=== PATIENT | male | born 2000 | race Caucasian/White ===

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

== ENCOUNTER 2022-12-18 15:38 | Emergency (ER) | payer SELFPAY ==
[~2022-12-18] VITALS: Ht 177 cm; Wt 98.0 kg
[2022-12-18 16:25] LABS: BASOPHILS % (AUTO) 1 % (0-10); EOSINOPHILS # (AUTO) 0.1 10^3/uL (0.0-0.3); EOSINOPHILS % (AUTO) 1 % (0-10); HEMATOCRIT 47 % (40-54); HEMOGLOBIN 16.7 g/dL (13.3-17.7); LYMPHOCYTES # (AUTO) 1.6 10^3/uL (1.0-4.0); LYMPHOCYTES % (AUTO) 29 % (12-44); MEAN CORPUSCULAR HEMOGLOBIN 31 pg (25-34); MEAN CORPUSCULAR HGB CONC 35 g/dL (32-36); MEAN CORPUSCULAR VOLUME 88 fL (80-99); MEAN PLATELET VOLUME 9.3 fL (9.0-12.2); MONOCYTES # (AUTO) 0.4 10^3/uL (0.0-1.0); MONOCYTES % (AUTO) 8 % (0-12); NEUTROPHILS # (AUTO) 3.3 10^3/uL (1.8-7.8); NEUTROPHILS % (AUTO) 60 % (42-75); PLATELET COUNT 278 10^3/uL (130-400); WHITE BLOOD COUNT 5.5 10^3/uL (4.3-11.0)
--- NOTE | 2022-12-18 16:26 | ED Abdominal Pain ---
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 PT STATES HAS ABD PAIN, OCC NAUSEA AND DIARRHEA FOR ALMOST A YEAR. PT RATES PAIN 02/14 Source of Information: Patient Exam Limitations: Language Barrier History of Present Illness Date Seen by Provider: Dec 18, 2022 Time Seen by Provider: 16:06 Initial Comments 22-year-old male presents to the ER with complaints of abdominal pain for approximately 1 year. States the pain occurs after eating. The reason he came in today is because he is concerned that he has stomach cancer. He reports occasional nausea, no vomiting. Reports he had diarrhea couple days ago, none today. Complains of bilateral mid to lower abdominal pain every time he eats. He states that he also gets heartburn and gastritis due to eating a lot of chili. He states that 4 weeks ago he cut down on the amount of chili he eats and started taking Pepto-Bismol. States this did help his pain some. Last bowel movement was approximately an hour prior to arrival. Denies fevers. Allergies and Home Medications Allergies Coded Allergies: No Known Drug Allergies (Unverified , 09/02/20) Patient Home Medication List Home Medication List Reviewed: Yes Omeprazole (Omeprazole) 20 Mg Capsule., 20 MG PO DAILY Prescribed by: Kavita Talbot on 12/18/221851 Review of Systems Review of Systems Constitutional: see HPI Gastrointestinal: See HPI Past Elomlca-Svfvsm-Xnfqdq Hx Patient Social History Tobacco Use?: Yes Tobacco type used: Cigarettes Smoking Status: Current Everyday Smoker Substance use?: No Alcohol Use?: No Pt feels they are or have been: No Immunizations Up To Date Tetanus Booster (TDap): Unknown Seasonal Allergies Seasonal Allergies: No Past Medical History Surgeries: No Respiratory: No Cardiac: No Neurological: No Genitourinary: No Gastrointestinal: No Musculoskeletal: No Endocrine: No HEENT: No Cancer: No Psychosocial: No Integumentary: No Blood Disorders: No Physical Exam Vital Signs Vital Signs - First Documented 12/18/22 12/18/22 15:50 19:17 Temp 36.4 Pulse 83 Resp 18 B/P (MAP) 124/71 (88) Pulse Ox 98 O2 Delivery Room Air Capillary Refill : Less Than 3 Seconds Height/Weight/BMI Height: '" Weight: lbs. oz. kg; 31.00 BMI Method: General Appearance: WD/WN, no apparent distress Neck: supple, normal inspection Respiratory: lungs clear, normal breath sounds, no respiratory distress, no accessory muscle use Cardiovascular: regular rate, rhythm Gastrointestinal: normal bowel sounds, soft, tenderness (Mild tenderness bilate ral lower to mid abdomen) Extremities: normal range of motion, normal inspection Neurologic/Psychiatric: alert, normal mood/affect Skin: normal color, warm/dry Progress/Results/Core Measures Results/Orders Lab Results Laboratory Tests Test 12/18/22 16:15 12/18/22 16:21 Range/Units White Blood Count 5.5 4.3-11.0 10^3/uL Red Blood Count 5.37 4.30-5.52 10^6/uL Hemoglobin 16.7 13.3-17.7 g/dL Hematocrit 47 40-54 % Mean Corpuscular Volume 88 80-99 fL Mean Corpuscular Hemoglobin 31 25-34 pg Mean Corpuscular Hemoglobin Concent 35 32-36 g/dL Red Cell Distribution Width 12.0 10.0-14.5 % Platelet Count 278 130-400 10^3/uL Mean Platelet Volume 9.3 9.0-12.2 fL Immature Granulocyte % (Auto) 1 % Neutrophils (%) (Auto) 60 42-75 % Lymphocytes (%) (Auto) 29 12-44 % Monocytes (%) (Auto) 8 0-12 % Eosinophils (%) (Auto) 1 0-10 % Basophils (%) (Auto) 1 0-10 % Neutrophils # (Auto) 3.3 1.8-7.8 10^3/uL Lymphocytes # (Auto) 1.6 1.0-4.0 10^3/uL Monocytes # (Auto) 0.4 0.0-1.0 10^3/uL Eosinophils # (Auto) 0.1 0.0-0.3 10^3/uL Basophils # (Auto) 0.0 0.0-0.1 10^3/uL Immature Granulocyte # (Auto) 0.0 0.0-0.1 10^3/uL Sodium Level 141 135-145 MMOL/L Potassium Level 3.6 3.6-5.0 MMOL/L Chloride Level 107 98-107 MMOL/L Carbon Dioxide Level 23 21-32 MMOL/L Anion Gap 11 5-14 MMOL/L Blood Urea Nitrogen 11 7-18 MG/DL Creatinine 0.86 0.60-1.30 MG/DL Estimat Glomerular Filtration Rate 127 BUN/Creatinine Ratio 13 Glucose Level 97 70-105 MG/DL Calcium Level 9.6 8.5-10.1 MG/DL Corrected Calcium 8.5-10.1 MG/DL Total Bilirubin 0.6 0.1-1.0 MG/DL Aspartate Amino Transf (AST/SGOT) 51 H 5-34 U/L Alanine Aminotransferase (ALT/SGPT) 81 H 0-55 U/L Alkaline Phosphatase 157 H 40-136 U/L Total Protein 7.7 6.4-8.2 GM/DL Albumin 4.7 H 3.2-4.5 GM/DL Amylase Level 51 25-125 U/L Lipase 22 8-78 U/L Urine Color YELLOW Urine Clarity CLEAR Urine pH 6.0 5-9 Urine Specific [place] >=1.030 1.016-1.022 Urine Protein NEGATIVE NEGATIVE Urine Glucose (UA) NEGATIVE NEGATIVE Urine Ketones NEGATIVE NEGATIVE Urine Nitrite NEGATIVE NEGATIVE Urine Bilirubin NEGATIVE NEGATIVE Urine Urobilinogen 0.2 < = 1.0 MG/DL Urine Leukocyte Esterase NEGATIVE NEGATIVE Urine RBC (Auto) TRACE-I H NEGATIVE Urine RBC NONE /HPF Urine WBC NONE /HPF Urine Squamous Epithelial Cells NONE /HPF Urine Crystals NONE /LPF Urine Bacteria NEGATIVE /HPF Urine Casts NONE /LPF Urine Mucus NEGATIVE /LPF Urine Culture Indicated NO My Orders Orders - KAVITA TALBOT APRN Ua Culture If Indicated (12/18/22 16:06) Comprehensive Metabolic Panel (12/18/22 16:20) Lipase (12/18/22 16:20) Amylase (12/18/22 16:20) Cbc With Automated Diff (12/18/22 16:20) Ct Abdomen/Pelvis W (12/18/22 16:20) Pantoprazole Injection (Protonix Injecti (12/18/22 16:30) Iohexol Injection (Omnipaque 350 Mg/Ml 1 (12/18/22 17:00) Ns (Ivpb) (Sodium Chloride 0.9% Ivpb Bag (12/18/22 17:00) Ed Iv/Invasive Line Start (12/18/22 17:07) Ns Iv 1000 Ml (Sodium Chloride 0.9%) (12/18/22 17:15) Medications Given in ED Current Medications Medications Dose Ordered Sig/Bruce Route Start Time Stop Time Status Last Admin Dose Admin Iohexol 100 ml ONCE ONCE IV 12/18/22 17:00 12/18/22 17:01 DC 12/18/22 17:24 80 ML Pantoprazole 40 mg ONCE ONCE IV 12/18/22 16:30 12/18/22 16:31 DC 12/18/22 17:00 40 MG Sodium Chloride 100 ml ONCE ONCE IV 12/18/22 17:00 12/18/22 17:01 DC 12/18/22 17:24 80 ML Vital Signs/I&O 12/18/22 12/18/22 12/18/22 15:50 16:05 19:17 Temp 36.4 36.4 36.4 Pulse 83 83 71 Resp 18 18 16 B/P (MAP) 124/71 (88) 124/71 (88) 121/73 Pulse Ox 98 98 97 O2 Delivery Room Air Blood Pressure Mean: 88 Progress Progress Note : Progress Note Patient seen evaluated, resting comfortably in bed, no acute distress. Based on exam and symptoms, work-up initiated including CBC, CMP, amylase, lipase, CT abdomen pelvis. Protonix IV ordered. [address] reviewed. CBC grossly normal. CMP shows slightly elevated AST 51, slightly elevated ALT 81, slightly elevated alkaline phosphatase at 157, slightly elevated albumin 4.7. Amylase and lipase normal. UA shows trace RBCs, negative for infection. Abdominal CT shows no acute abnormality. Results discussed with patient. Patient instructed to follow-up with primary care provider regarding elevated liver enzymes. I instructed him to follow-up with surgery for possible endoscopy for evaluation of abdominal pain. Patient agreeable to discharge plan. Discharge instructions and return precautions provided. Diagnostic Imaging Diagonstic Imaging: CT Plain Films/CT/US/NM/MRI: abdomen, pelvis Comments [facility] [place], [place] NAME: [facility] REC#: [id number] PT STATUS: REG ER : 2000 PHYSICIAN: KAVITA TALBOT APRN ADMIT DATE: 12/18/22/ER Signed Date of Exam:12/18/22 CT ABDOMEN/PELVIS W EXAMINATION: CT abdomen and pelvis with intravenous contrast. TECHNIQUE: Multiple contiguous axial images were obtained through the abdomen and pelvis after the uneventful administration of intravenous contrast. All CT scans use one or more of the following dose optimizing techniques: Automated exposure control, MA and/or KvP adjustment based on patient size and exam type or iterative reconstruction. HISTORY: Abdominal pain. COMPARISON: None available. FINDINGS: Limited views of the lower thorax are unremarkable. The liver is normal without focal lesion. There is no biliary ductal dilation. Gallbladder is normal. Pancreas is normal. Spleen is normal. Adrenal glands are normal. The kidneys are normal. There is no hydronephrosis. Urinary bladder is normal. Bowel is normal in caliber without obstruction or inflammation. The appendix is normal. No free fluid or air. No abdominal or pelvic lymphadenopathy. Aorta is normal in caliber without aneurysm. There are no suspicious osseous lesions. IMPRESSION: 1. No acute abnormality in the abdomen or pelvis. Dictated by: Dictated on workstation # [id number] Dict: 12/18/221728 Trans: 12/18/22 [id number] Interpreted by: JUAN VIRK MD Electronically signed by: JUAN VIRK MD 12/18/22 174 Departure Impression Primary Impression: Abdominal pain Qualified Codes: R10.9 - Unspecified abdominal pain Disposition: 01 HOME, SELF-CARE Condition: Stable Departure-Patient Inst. Decision time for Depature: 18:49 Referrals: [facility] (PCP/Family) Primary Care Physician TRIHS BRANTLEY DO Patient Instructions: Gastritis, Severe Abdominal Pain, Adult (DC) Add. Discharge Instructions: Take omeprazole once daily as prescribed. You may also take Tums or Pepto- Bismol. Call surgery to schedule a follow up for an endoscopy. Follow up with primary care provider for your elevated liver function tests. Return for severe pain, or any other new, concerning, or worsening symptoms. All discharge instructions reviewed with patient and/or family. Voiced underst anding. Scripts Omeprazole (Omeprazole) 20 Mg Capsule. 20 MG PO DAILY for 42 Days, #42 CAP 0 Refills Prov: KAVITA TALBOT APRN 12/18/22 KAVITA TALBOT APRN Dec 18, 2022 16:25
[2022-12-18 16:27] LABS: BILIRUBIN,URINE NEGATIVE (NEGATIVE); CLARITY,URINE CLEAR; COLOR,URINE YELLOW; GLUCOSE, URINE (UA) NEGATIVE (NEGATIVE); KETONES,URINE NEGATIVE (NEGATIVE); LEUKOCYTE ESTERASE ,URINE NEGATIVE (NEGATIVE); NITRITE,URINE NEGATIVE (NEGATIVE); PROTEIN,URINE NEGATIVE (NEGATIVE)
[2022-12-18] MEDS ORDERED: PANTOPRAZOLE 40 MG (PROTONIX) VIAL IV ONE (16:30)
[2022-12-18 16:33] LABS: BACTERIA,URINE NEGATIVE /HPF
[2022-12-18 16:38] LABS: ALBUMIN 4.7 GM/DL (3.2-4.5); CHLORIDE 107 MMOL/L (98-107); POTASSIUM 3.6 MMOL/L (3.6-5.0); SODIUM 141 MMOL/L (135-145)
[2022-12-18 16:39] LABS: AMYLASE 51 U/L (25-125); CALCIUM 9.6 MG/DL (8.5-10.1)
[2022-12-18 16:41] LABS: GLUCOSE 97 MG/DL (70-105); TOTAL PROTEIN 7.7 GM/DL (6.4-8.2)
[2022-12-18 16:42] LABS: BILIRUBIN,TOTAL 0.6 MG/DL (0.1-1.0); CARBON DIOXIDE 23 MMOL/L (21-32)
[2022-12-18 16:44] LABS: ALKALINE PHOSPHATASE 157 U/L (40-136); CREATININE SERUM 0.86 MG/DL (0.60-1.30); GFR ESTIMATED 127
[2022-12-18 16:45] LABS: BUN/CREATININE RATIO 13
[2022-12-18 16:47] LABS: ALANINE AMINOTRANSFERASE 81 U/L (0-55)
[2022-12-18 16:48] LABS: LIPASE 22 U/L (8-78)
[2022-12-18] MEDS ORDERED: NS 100 ML (IVPB) BAG IV ONE (17:00)
[2022-12-18] MEDS ORDERED: IOHEXOL 350 MG/ML 100 ML (OMNIPAQUE 350) VIAL IV ONE (17:00)
[2022-12-18] MEDS ORDERED: NS IV 1000 ML 1,000 ML IV SCH (17:15)
--- NOTE | 2022-12-18 17:35 | Diagnostic Imaging Report ---
EXAMINATION: CT abdomen and pelvis with intravenous contrast. TECHNIQUE: Multiple contiguous axial images were obtained through the abdomen and pelvis after the uneventful administration of intravenous contrast. All CT scans use one or more of the following dose optimizing techniques: Automated exposure control, MA and/or KvP adjustment based on patient size and exam type or iterative reconstruction. HISTORY: Abdominal pain. COMPARISON: None available. FINDINGS: Limited views of the lower thorax are unremarkable. The liver is normal without focal lesion. There is no biliary ductal dilation. Gallbladder is normal. Pancreas is normal. Spleen is normal. Adrenal glands are normal. The kidneys are normal. There is no hydronephrosis. Urinary bladder is normal. Bowel is normal in caliber without obstruction or inflammation. The appendix is normal. No free fluid or air. No abdominal or pelvic lymphadenopathy. Aorta is normal in caliber without aneurysm. There are no suspicious osseous lesions. IMPRESSION: 1. No acute abnormality in the abdomen or pelvis. Dictated by: Dictated on workstation # [id number]
[2022-12-18] MEDS ORDERED: OMEP20CA18 PO (18:52)
[2022-12-18 19:17] VITALS: BP 121/73
== END 2022-12-18 19:17 | disposition home or self-care (01) ==
LOC: EDUNIT# 15:38 → ER 15:39
DX: R10.31 Right lower quadrant pain (principal); R10.32 Left lower quadrant pain; F17.210 Nicotine dependence, cigarettes, uncomplicated
CPT/HCPCS: 36415; 74177; 80053; 81000; 82150; 83690; 85025